=== PATIENT | female | born 1930 | race Caucasian/White ===

== ENCOUNTER → 2016-09-07 | Outpatient (CLI) | payer OTHER, MEDICARE ==
[~2016-09-07] MED LIST: ATEN50TA8 PO; CHOL20005 PO; LSX40 PO; TIMO0.2528 OP
[2016-09-07 09:45] LABS: BLOOD UREA NITROGEN 25 mg/dl (7-18); BUN/CREATININE RATIO 26.6 (10-20); CALCIUM 8.9 mg/dl (8.5-10.1); CARBON DIOXIDE 24 mmol/L (21-32); CHLORIDE 107 mmol/L (98-107); CREATININE 0.94 mg/dl (0.60-1.20); GLUCOSE 153 mg/dl (70-99); POTASSIUM 4.3 mmol/L (3.5-5.1); SODIUM 142 mmol/L (136-145)
[2016-09-07 10:45] LABS: ESTIMATED AVERAGE GLUCOSE 143 mg/dl; HA1C FLAG Normal (Normal)
== END | disposition home or self-care (01) ==
LOC: C.LAB 07:17
PROVIDERS: ATTEND Internal Medicine
DX: E11.9 Type 2 diabetes mellitus without complications (principal); I89.0 Lymphedema, not elsewhere classified

== ENCOUNTER → 2017-02-14 | Outpatient (CLI) | payer OTHER, MEDICARE ==
[2017-02-14 09:46] LABS: BASO % 0.3 %; BASO ABS # 0.02 K/uL (0-0.2); COMPLETE YES; EOS % 4.3 %; HEMATOCRIT 45.7 % (37-47); IG% 0.3 %; LYMPH % 20.8 %; LYMPH ABS # 1.32 K/uL (1.2-3.4); MEAN CELL VOLUME 92.1 fL (80-100); MEAN CORPUSCULAR HEMOGLOBIN 30.8 pg (25-34); MEAN CORPUSCULAR HGB CONC 33.5 g/dl (32-36); MONO % 9.6 %; NEUT % 64.7 %; PLATELET COUNT 196 K/uL (130-400); RED BLOOD COUNT 4.96 M/uL (4.2-5.4); WHITE BLOOD COUNT 6.34 K/uL (4.8-10.8)
[2017-02-14 10:08] LABS: ESTIMATED AVERAGE GLUCOSE 143 mg/dl; HA1C FLAG Normal (Normal)
[2017-02-14 10:18] LABS: ALT/SGPT 19 U/L (12-78); BLOOD UREA NITROGEN 23 mg/dl (7-18); BUN/CREATININE RATIO 23.6 (10-20); CALCIUM 9.4 mg/dl (8.5-10.1); CARBON DIOXIDE 31 mmol/L (21-32); CHLORIDE 102 mmol/L (98-107); CHOLESTEROL 193 mg/dl (0-200); CREATININE 0.99 mg/dl (0.60-1.20); GLUCOSE 152 mg/dl (70-99); POTASSIUM 4.1 mmol/L (3.5-5.1); SODIUM 139 mmol/L (136-145); TRIGLYCERIDES 200 mg/dl (0-150); VERY LOW DENSITY LIPOPROT CALC 40 mg/dl
[2017-02-14 10:22] LABS: ALB/GLOB RATIO 0.9 (0.9-2); ALKALINE PHOSPHATASE 94 U/L (45-117); AST/SGOT 19 U/L (15-37); CHOLESTEROL/HDL RATIO 3.6; HDL CHOLESTEROL 53 mg/dl; LDL CHOLESTEROL CALCULATED 100 mg/dl
== END | disposition home or self-care (01) ==
LOC: C.LAB 07:20
PROVIDERS: ATTEND Internal Medicine
DX: E55.9 Vitamin D deficiency, unspecified (principal); I50.32 Chronic diastolic (congestive) heart failure; E11.9 Type 2 diabetes mellitus without complications; C18.9 Malignant neoplasm of colon, unspecified

== ENCOUNTER → 2017-07-20 | Outpatient (CLI) | payer OTHER, MEDICARE ==
--- NOTE | 2017-07-21 12:57 | MAMMOGRAPHY REPORT ---
UNILATERAL LEFT DIGITAL SCREENING MAMMOGRAM TOMOSYNTHESIS WITH CAD: 07/20/2017 CLINICAL HISTORY: Routine screening. Patient has no complaints. TECHNIQUE: Breast tomosynthesis in addition to standard 2D mammography was performed. Current study was also evaluated with a Computer Aided Detection (CAD) system. Left CC and MLO 2-D and tomosynthes is images were obtained. COMPARISON: Comparison is made to exams dated: 07/14/2016 mammogram, 01/11/2016 mammogram, 12/28/2015 ma mmogram, 12/23/2014 mammogram, 12/17/2013 mammogram, and 12/14/2012 mammogram - [facility] nter. BREAST COMPOSITION: There are scattered areas of fibroglandular density in the left breast. FINDINGS: There are no suspicious masses, calcifications, or areas of architectural distortion noted within the left breast. There has been no significant interval change compared to prior exams. Sma ll cluster of calcifications in the left central breast is stable compared to prior exams. Circumscr ibed benign-appearing 11 mm mass is again noted within the left upper outer quadrant. IMPRESSION: ACR BI-RADS CATEGORY 2: BENIGN There is no mammographic evidence of malignancy in the left breast. A 1 year screening mammogram is r ecommended. The patient will receive written notification of the results. Approximately 10% of breast cancers are not detected with mammography. A negative mammographic report should not delay biopsy if a clinically suggestive mass is present. Shaylee Roa M.D. ah/:07/20/2017 14:20:54 [employer]becue: Curry Hardwick M, [facility] letter sent: Normal 1/2 BI-RADS Code: ACR BI-RADS Category 2: Benign
== END | disposition home or self-care (01) ==
LOC: C.MAMM 13:47
PROVIDERS: ATTEND Internal Medicine
DX: Z12.31 Encounter for screening mammogram for malignant neoplasm of breast (principal); Z85.3 Personal history of malignant neoplasm of breast

== ENCOUNTER → 2017-08-12 | Outpatient (CLI) | payer OTHER, MEDICARE ==
[2017-08-12 08:32] LABS: BASO % 0.2 %; BASO ABS # 0.02 K/uL (0-0.2); EOS % 2.8 %; EOS ABS # 0.24 K/uL (0-0.5); HEMATOCRIT 43.2 % (37-47); HEMOGLOBIN 14.8 g/dL (12.0-16.0); IG# 0.04 K/uL (0.00-0.02); LYMPH % 19.2 %; LYMPH ABS # 1.62 K/uL (1.2-3.4); MEAN CELL VOLUME 92.5 fL (80-100); MEAN CORPUSCULAR HEMOGLOBIN 31.7 pg (25-34); MEAN CORPUSCULAR HGB CONC 34.3 g/dl (32-36); MEAN PLATELET VOLUME 10.1 fL (7.4-10.4); MONO % 10.5 %; MONO ABS # 0.89 K/uL (0.11-0.59); NEUT % 66.8 %; NEUT ABS # 5.64 K/uL (1.4-6.5); PLATELET COUNT 218 K/uL (130-400); RED CELL DISTRIBUTION WIDTH CV 14.2 % (11.5-14.5); RED CELL DISTRIBUTION WIDTH SD 47.7 fL (36.4-46.3); WHITE BLOOD COUNT 8.45 K/uL (4.8-10.8)
[2017-08-12 09:02] LABS: ALBUMIN 3.4 gm/dl (3.4-5.0); ALT/SGPT 18 U/L (12-78); BLOOD UREA NITROGEN 27 mg/dl (7-18); CALCIUM 9.2 mg/dl (8.5-10.1); CARBON DIOXIDE 30 mmol/L (21-32); CHOLESTEROL 206 mg/dl (0-200); CREATININE 1.01 mg/dl (0.60-1.20); GLUCOSE 163 mg/dl (70-99); POTASSIUM 4.1 mmol/L (3.5-5.1); SODIUM 139 mmol/L (136-145)
[2017-08-12 09:05] LABS: ALKALINE PHOSPHATASE 96 U/L (45-117); AST/SGOT 17 U/L (15-37); LDL CHOLESTEROL CALCULATED 119 mg/dl; TOTAL PROTEIN 8.3 gm/dl (6.4-8.2)
[2017-08-12 11:57] LABS: HEMOGLOBIN A1C 6.8 % (4.5-5.6)
== END | disposition home or self-care (01) ==
LOC: C.LAB 08:04
PROVIDERS: ATTEND Internal Medicine
DX: E11.9 Type 2 diabetes mellitus without complications (principal); I50.32 Chronic diastolic (congestive) heart failure